=== PATIENT | male | born 1975 | race Asian ===

== ENCOUNTER 2018-03-17 21:04 | Emergency (ER) | payer OTHER ==
[~2018-03-17] VITALS: Ht 167.6 cm; Wt 90.7 kg
[2018-03-17] MEDS ORDERED: ZESTRIL40 MG PO (21:08)
[2018-03-17 21:09] VITALS: BP 180/108; TEMP 98.7
[2018-03-17] MEDS ORDERED: AMLODIPINE BESYLATE PO (21:09)
== END 2018-03-17 23:19 | disposition home or self-care (01) ==
LOC: ED 21:04
DX: M54.2 Cervicalgia (principal); M25.511 Pain in right shoulder; M54.9 Dorsalgia, unspecified
CPT/HCPCS: 99281

== ENCOUNTER 2021-09-22 08:41 | Outpatient (CLI) | payer OTHER ==
[~2021-09-22 08:41] MED LIST: AMLODIPINE BESYLATE PO; ZESTRIL40 MG PO
== END 2021-09-22 20:03 | disposition home or self-care (01) ==
LOC: US 08:41
PROVIDERS: ATTEND Nurse Practitioner Family
DX: R74.8 Abnormal levels of other serum enzymes (principal)

== ENCOUNTER 2023-03-12 14:36 | Outpatient (CLI) | payer OTHER | END 2023-03-12 21:27 | disposition home or self-care (01) | LOC: US 14:36 | PROVIDERS: ATTEND Nurse Practitioner Family | DX: I10 Essential (primary) hypertension (principal); R09.89 Other specified symptoms and signs involving the circulatory and respiratory systems ==